=== PATIENT | male | born 1965 | race American Indian/Alaskan Native ===

== ENCOUNTER 2020-11-18 21:06 | Emergency (ER) | payer BC ==
[2020-11-19 05:12] VITALS: BP 165/99
--- NOTE | 2020-11-19 05:40 | Emergency Department Report ---
ED Back Pain/Injury HPI - General Chief Complaint: Pain General Stated Complaint: RT LEG PAIN Source: patient Limitations: No Limitations - History of Present Illness Initial Comments: Patient is a 55 year-old -[place] female with past medical history chronic low back pain and sciatica who presents to the ED with complaint of acute exacerbation of his chronic low back pain that radiates to the right leg characteristic of his chronic sciatica for the last 2 weeks, worse in the last 2 days. Patient states that he has been taking tramadol as well as ibuprofen with no relief. Patient states that even though the pain is characteristic of his chronic low back pain with sciatica, the last 2 days has been worse despite taking the medication for pain. Patient denies denies fall, traumatic injury, nausea and vomiting, chest pain, shortness of breath, dizziness, syncope, heavy lifting, hematuria, testicular pain, fever and chills, numbness and tingling or weakness of lower extremities bilaterally, saddle paresthesia, urinary or bowel incontinence. MD Complaint: back pain (low back pain that radiates to the right leg), other (chronic sciatica) -: Sudden, week(s) (1) Similar Symptoms Previously: Yes (chronic low back pain with sciatica) Place: home Radiation: right leg Severity: severe Severity scale (0 -10): 8 Quality: sharp, aching Consistency: constant Improves With: none Worsens With: movement, walking Context: turning/twisting Associated Symptoms: denies other symptoms. denies: confusion, weakness, chest pain, numbness, difficulty walking, cough, difficulty urinating, diaphoresis, incontinence, fever/chills, constipation, abdominal pain, loss of appetite Treatments Prior to Arrival: NSAIDS - Related Data Previous Rx's Medication Instructions Recorded Last Taken Type Gabapentin 300 mg PO Q8H PRN #90 capsule 11/19/20 Unknown Rx Naproxen 500 mg PO Q12H PRN #30 tablet 11/19/20 Unknown Rx carisoprodoL [Soma] 350 mg PO Q8H PRN #30 tablet 11/19/20 Unknown Rx predniSONE [Deltasone] 60 mg PO QDAY #15 tab 11/19/20 Unknown Rx Allergies Allergy/AdvReac Type Severity Reaction Status Date / Time No Known Allergies Allergy Verified 11/19/20 05:09 ED Review of Systems ROS: Stated complaint: RT LEG PAIN Other details as noted in HPI Constitutional: denies: chills, fever Eyes: denies: eye pain, eye discharge, vision change ENT: denies: ear pain, throat pain Respiratory: denies: cough, shortness of breath, wheezing Cardiovascular: denies: chest pain, palpitations Endocrine: no symptoms reported Gastrointestinal: denies: abdominal pain, nausea, vomiting, diarrhea Genitourinary: denies: urgency, dysuria Musculoskeletal: back pain (low back pain), arthralgia (right leg pain), myalgia. denies: joint swelling Skin: denies: rash, lesions Neurological: denies: headache, weakness, paresthesias Psychiatric: denies: anxiety, depression Hematological/Lymphatic: denies: easy bleeding, easy bruising ED Past Medical Hx - Past Medical History Previous Medical History?: No Additional medical history: Chronic low back pain and sciatica - Surgical History Past Surgical History?: No - Social History Smoking Status: Never Smoker Substance Use Type: None - Medications Home Medications: Home Medications Medication Instructions Recorded Confirmed Last Taken Type Gabapentin 300 mg PO Q8H PRN #90 capsule 11/19/20 Unknown Rx Naproxen 500 mg PO Q12H PRN #30 tablet 11/19/20 Unknown Rx carisoprodoL [Soma] 350 mg PO Q8H PRN #30 tablet 11/19/20 Unknown Rx predniSONE [Deltasone] 60 mg PO QDAY #15 tab 11/19/20 Unknown Rx ED Physical Exam - General Limitations: No Limitations General appearance: alert, in no apparent distress - Head Head exam: Present: atraumatic, normocephalic, normal inspection - Eye Eye exam: Present: normal appearance, PERRL, EOMI Pupils: Present: normal accommodation - ENT ENT exam: Present: normal exam, normal orophraynx, mucous membranes moist, TM's normal bilaterally, normal external ear exam - Neck Neck exam: Present: normal inspection, full ROM - Respiratory Respiratory exam: Present: normal lung sounds bilaterally. Absent: respiratory distress, wheezes, rhonchi, stridor, chest wall tenderness, accessory muscle use, decreased breath sounds, prolonged expiratory - Cardiovascular Cardiovascular Exam: Present: regular rate, normal rhythm, normal heart sounds. Absent: systolic murmur, diastolic murmur, rubs, gallop - GI/Abdominal GI/Abdominal exam: Present: soft, normal bowel sounds. Absent: tenderness, guarding, rebound, hyperactive bowel sounds, hypoactive bowel sounds, organomegaly - Extremities Exam Extremities exam: Present: normal inspection, full ROM, normal capillary refill - Back Exam Back exam: Present: normal inspection, full ROM, tenderness (Palpable lumbosacral paraspinal musculoskeletal tenderness), muscle spasm, paraspinal tenderness - Neurological Exam Neurological exam: Present: alert, oriented X3, CN II-XII intact, normal gait, reflexes normal - Psychiatric Psychiatric exam: Present: normal affect, normal mood - Skin Skin exam: Present: warm, dry, intact, normal color. Absent: rash ED Course Vital Signs 11/19/20 05:10 Pulse Rate 69 Respiratory 16 Rate Blood Pressure 165/99 O2 Sat by Pulse 97 Oximetry ED Medical Decision Making - Medical Decision Making This is a 55 year-old -[place] female with past medical history chronic low back pain and sciatica who presents to the ED with complaint of acute exacerbation of his chronic low back pain that radiates to the right leg characteristic of his chronic sciatica for the last 2 weeks, worse in the last 2 days. Patient states that he has been taking tramadol as well as ibuprofen with no relief. Patient states that even though the pain is characteristic of his chronic low back pain with sciatica, the last 2 days has been worse despite taking the medication for pain. In the ED, patient is alert and oriented x3 and is not in any distress. Patient symptoms are chronic in nature with acute exacerbation during this visit. Patient was therefore discharged home on pain medications including gabapentin, prednisone and advised to continue taking the previously prescribed medications and to follow-up with his primary care physician in 5 to 7 days for reevaluation. Patient is advised return to the ED immediately if symptoms get worse. - Differential Diagnosis Chronic pain; chronic sciatica; chronic osteoarthritis; muscle spasm Critical care attestation.: If time is entered above; I have spent that time in minutes in the direct care of this critically ill patient, excluding procedure time. ED Disposition Clinical Impression: Acute exacerbation of chronic low back pain, Spasm of muscle of lower back Chronic low back pain with right-sided sciatica Qualifiers: Back pain laterality: right Qualified Code(s): M54.41 - Lumbago with sciatica, right side; G89.29 - Other chronic pain Disposition: TO HOME OR SELFCARE Is pt being admited?: No Does the pt Need Aspirin: No Condition: Stable Instructions: Muscle Cramps and Spasms, [id number], Sciatica, [id number], Chronic Back Pain, [id number] Additional Instructions: Take medication with food, drink plenty of fluids and follow-up with your primary care physician in 5 to 7 days for reevaluation. Return to the ED immediately if symptoms get worse. Prescriptions: predniSONE [Deltasone] 60 mg PO QDAY #15 tab Gabapentin 300 mg PO Q8H PRN #90 capsule PRN Reason: Radiculopathy Naproxen 500 mg PO Q12H PRN #30 tablet PRN Reason: Pain , Severe (7-10) carisoprodoL [Soma] 350 mg PO Q8H PRN #30 tablet PRN Reason: Muscle Spasm Referrals: [facility] [Provider Group] - 7-10 days Time of Disposition: 05:47 Print Language: LITHUANIAN
== END 2020-11-19 06:05 | disposition home or self-care (01) ==
LOC: ED 21:06
DX: M54.41 Lumbago with sciatica, right side (principal); G89.29 Other chronic pain; M62.830 Muscle spasm of back; Z79.899 Other long term (current) drug therapy